=== PATIENT | female | born 1970 | race Caucasian/White ===

== ENCOUNTER 2018-05-20 11:55 | Outpatient (REF) | payer SELFPAY ==
[2018-05-21 11:29] LABS: HBs Antibody, Quant 178.1 mIU/mL; Hepatitis B Surface Ab Positive
[2018-05-21 13:32] LABS: Varicella IgG Antibody Positive
[2018-05-21 13:37] LABS: Measles IgG Antibody Positive; Mumps Antibody IgG Positive (Negative); Rubella IgG Ab (UVM) Positive
[2018-05-24 13:24] LABS: TB Interpretation Negative (NEGAT)
== END 2018-05-20 11:56 ==
LOC: LBO 11:55
PROVIDERS: Visit Provider Nurse Practitioner Family
DX: Z02.1 Encounter for pre-employment examination (principal); Z01.84 Encounter for antibody response examination

== ENCOUNTER 2019-01-31 00:21 | Outpatient (CLI) | payer MEDICAID, SELFPAY ==
--- NOTE | 2019-01-31 17:21 | DI.MAMMO_ITS ---
SYMPTOM/DIAGNOSIS: SCREENING, Z12.31 MAMMOGRAMS: Mammograms were interpreted according to the usual protocol including computer analysis with CAD system, tomosynthesis and C view imaging. This is a baseline examination. The breasts are composed of heterogeneously dense fibroglandular tissue, breast density, category C. No suspicious masses or suspicious microcalcifications are seen. IMPRESSION: Category 1, negative mammogram. Yearly screening mammography is recommended. [facility] ASSESSMENT OF FINDINGS: Negative. Category 1. Patient will receive a letter notifying them of these results. Bi-RADS category C. The breasts are heterogeneously dense, which may obscure small masses.
== END 2019-01-31 00:41 ==
PROVIDERS: PCP Family Medicine; Visit Provider Family Medicine
DX: Z12.31 Encounter for screening mammogram for malignant neoplasm of breast (principal)
CPT/HCPCS: 77063; 77067

== ENCOUNTER 2020-05-18 03:53 | Outpatient (REF) | payer SELFPAY ==
[2020-05-21 08:16] LABS: SARS-CoV-2 RNA Undetected (Undetected)
== END 2020-05-18 04:13 ==
LOC: LBO 03:53
PROVIDERS: PCP Family Medicine; Visit Provider Nurse Practitioner Family
DX: Z11.59 Encounter for screening for other viral diseases (principal)
CPT/HCPCS: U0003

== ENCOUNTER 2021-12-12 16:03 | Emergency (ER) | payer OTHER, SELFPAY ==
[2021-12-12 16:13] VITALS: BP 131/85; PULSE 53; RESP 16; TEMP 36.4; O2SAT 98
--- NOTE | 2021-12-12 16:15 | DI.RAD_ITS ---
Exam(s) XR PORTABLE CHEST AP EXAM: XR PORTABLE CHEST AP CLINICAL HISTORY: PUI, SOB, R/O Pneumonia TECHNIQUE: 2D digital imaging was performed of the chest. One image was obtained. An AP view was ob tained. COMPARISON: No exams were available for comparison FINDINGS: MEDIASTINUM: Normal. HEART: Normal. PULMONARY VASCULATURE: Normal. LUNGS: Clear. The lungs appear hyperexpanded which may represent underlying COPD. PLEURAL SPACE: No pleural effusion or pneumothorax. BONE:Within normal limits for the patient's age. OTHER FINDINGS:Normal. IMPRESSION: No acute pulmonary findings. DATA REPOSITORY: RADIATION DOSE DELIVERED:
--- NOTE | 2021-12-12 16:24 | ED.GENADUL_ITS ---
Discharge Plan Disposition Patient Disposition: HOME Condition: Stable Discharge Details Clinical Impression: URI (upper respiratory infection) Primary Care Provider: Mason Duque ED Provider: Anisha Colorado Home Meds and New Rx's Prescriptions: New doxycycline hyclate 100 mg tablet 100 mg PO BID 9 Days Qty: 18 0RF Discharge Instructions Instructions: Upper Respiratory Infection (ED) Additional Instructions: At this time the Covid, flu, RSV swabs are negative. Chest x-ray shows no evidence for pneumonia or infiltrate. However due to your symptoms I am going to treat you with antibiotics for possible sinusitis or a possible bacterial URI. You may also try Flonase or similar mmeg-djp-nlzhncx 1 spray to both nostrils once daily. Also take zinc such as Zicam or similar. Follow up with primary care provider in 3-5 days. Return to ED sooner if any worsening or concerns. Increase oral fluids. Please take Tylenol or Ibuprofen with food every 4-6 hours as needed for pain and swelling. Stand Alone Forms: Work Release Referrals: Mason Duque [Primary Care Provider] - 5 days Discharge Data Discharge Date/Time-TO BE ENTERED AT DEPARTURE: 12/12/21 18:36 Medical Decision Making 51-year-old female presents to the ER with chief complaint of respiratory symptoms for the last 5 days. She reports that she received a negative Covid test on Thursday. She reports decreased energy, cough with productive green sputum, hot and cold chills body ache. She has been taking zvfi-msq-yonuppk decongestants and Tylenol. She denies any chest pain no nausea vomiting diarrhea no abdominal pain or any other associated symptoms. Patient has no significant past medical history. She describes having pneumonia with similar symptoms approximately 1 year ago. Work-up ordered including CBC, CMP, blood cultures x2, chest x-ray and a flu- Vid. CBC within normal limits, CMP also largely within normal limits. Glucose slightly elevated at 168 Covid negative, flu negative and RSV negative. CXR: FINDINGS: MEDIASTINUM: Normal. HEART: Normal. PULMONARY VASCULATURE: Normal. LUNGS: Clear. The lungs appear hyperexpanded which may represent underlying COPD. PLEURAL SPACE: No pleural effusion or pneumothorax. BONE:Within normal limits for the patient's age. OTHER FINDINGS:Normal. IMPRESSION: No acute pulmonary findings. Patient symptoms are concerning for possible bacterial infection of either sinusitis or bacterial URI despite negative test. Will give patient d oxycycline. I did discuss using Flonase as needed and cobc-nva-zrhpgny zinc. I did discuss follow-up care and return instructions for any worsening. Patient was given a work note if needed to be off tomorrow. Patient remained hemodynamically stable alert oriented throughout stay. This text was generated using [employer] system, please disregard any oddities of phrase or misspellings. HPI General Mode of arrival: ambulatory . Date/Time Provider Initiated Documentation: 12/12/21 16:04 . Limitations to Documentation: no limitations . Information obtained by: patient, RN notes reviewed and old records reviewed . HPI Narrative: 51-year-old female presents to the ER with chief complaint of respiratory symptoms for the last 5 days. She reports that she received a negative Covid test on Thursday. She reports decreased energy, cough with productive green sputum, hot and cold chills body ache. She has been taking bcwk-fgu-zbgwjsv decongestants and Tylenol. She denies any chest pain no nausea vomiting diarrhea no abdominal pain or any other associated symptoms. Patient has no significant past medical history. She describes having pneumonia with similar symptoms approximately 1 year ago. Related Data Home Medications Medication Instructions Recorded Confirmed doxycycline hyclate 100 mg tablet 100 mg PO BID 9 Days #18 tab 12/12/21 Previous Rx's Medication Instructions Recorded doxycycline hyclate 100 mg tablet 100 mg PO BID 9 Days #18 tab 12/12/21 Allergies Allergy/AdvReac Type Severity Reaction Status Date / Time Penicillins Allergy Unknown Verified 12/12/21 16:18 General Stated Complaint: RespSymp STEVO: 4 Review of Systems All systems reviewed & are unremarkable except as noted in HPI and below Constitutional Constitutional: Reports body ache(s), Reports chills and Reports lethargy Respiratory Respiratory: Reports change in phlegm color, Reports cough and Reports excessive phlegm production PFSH All Active Problems (Updated 12/12/21 @ 17:59 by Anisha Colorado) URI (upper respiratory infection) (Acute) Encounter for screening for other viral diseases (Acute) Social History Smoking/Tobacco Use Status: Current every day Tobacco Type: cigarettes Smoking risk assessment performed?: Yes Alcohol Intake: never Substance use type: does not use Exam Narrative Exam Narrative: Constitutional: Alert and oriented x3. Appears stated age. Normal body habitus. Head: Normocephalic, no trauma. Eyes: Pupils PERRL, Red reflex noted, EOM's intact. Eyelids symmetrical without lesions, discharge, or swelling. ENT: Bilateral TM's WNL, External ear normal to inspection, no mastoid TTP, swelling, or erythema, Nasal turbinates WNL, no nasal discharge. Normal dentition, Posterior pharynx WNL, no exudate. Chest: RRR, Normal S1, S2, distal pulses intact. Resp: Lungs clear to auscultation bilaterally, no wheezes, rales, or rhonchi. Diminished in the bases. Abdomen: Soft, non-distended, Normoactive bowel sounds all 4 quads. Musculoskeletal: Normal gait, 5/5 strength to all four extremities. Skin: No suspicious rashes or lesions. Capillary refill less than 2 sec. Neurologic: Cranial nerves II-XII intact. Alert and oriented x 3. Motor: No deficits noted. Sensory: Intact bilaterally all 4 extremities. Reflexes: DTR's intact bilaterally.. Hematologic/Lymphatic: No ecchymosis, no lymphadenopathy. Course Vital Signs Vital signs: Vital Signs Temperature 36.4 C 12/12/21 16:13 Pulse 53 L 12/12/21 16:13 Respiratory Rate 16 12/12/21 16:13 Blood Pressure 131/85 12/12/21 16:13 Pulse Oximetry 98 12/12/21 16:13 Temperature 36.4 C 12/12/21 16:13 Temperature Source Skin 12/12/21 16:13 Pulse 53 L 12/12/21 16:13 Respiratory Rate 16 12/12/21 16:13 Respiratory Effort 12/12/21 16:19 Respiratory Depth Normal 12/12/21 16:19 Blood Pressure 131/85 12/12/21 16:13 Blood Pressure Position Sitting 12/12/21 16:13 Pulse Oximetry 98 12/12/21 16:13 Oxygen Delivery Method Room Air 12/12/21 16:13 Oxygen Flow Rate 0 12/12/21 16:13 Pain Level 4 12/12/21 16:13 Lab/Test Results Lab/Test Results: 12/12/21 16:22 Blood Blood Culture - Pending 12/12/21 16:22 Blood Blood Culture - Pending
[2021-12-12 17:11] LABS: Abs Immature Grans 0.02 10^3/uL (0.0-0.06); Absolute Basophil Count 0.03 10^3/uL (0.0-0.2); Absolute Eosinophil Count 0.19 10^3/uL (0.0-0.7); Absolute Lymphocyte Count 3.09 10^3/uL (1.2-3.4); Absolute Monocyte Count 0.37 10^3/uL (0.1-0.8); Absolute Neutrophil Count 2.43 10^3/uL (1.2-6.7); Basophils % 0.5; Eosinophils % 3.1; HCT 38.8 % (36.0-46.0); Immature Grans % 0.3; Lymphocytes % 50.4; MCH 30.5 pg (27.0-33.0); MCHC 33.5 % (32.0-36.0); MCV 91.1 fL (80-95); MPV 9.9 fL (8.0-11.0); Neutrophils % 39.7; Nucleated RBC 0 %; Platelet Count 199 10^3/uL (130-400); RBC 4.26 10^6/uL (3.93-5.22); RDW 11.9 % (11.7-14.6); RDW-SD 40.1 fL; WBC 6.13 10^3/uL (4.4-10.8)
[2021-12-12 17:18] LABS: ALT 22 U/L (14-59); AST 21 U/L (15-37); Albumin 3.3 g/dL (3.4-5.0); Alkaline Phosphatase 87 U/L (46-116); Anion Gap 6.1 mmol/L (3-11); BUN 14 mg/dL (7-18); Bilirubin, Total 0.3 mg/dL (0.2-1.0); CO2 28.9 mmol/L (21.0-32.0); CREATININE 0.8 mg/dL (0.55-1.02); Calcium 8.5 mg/dL (8.5-10.1); Chloride 105 mmol/L (98-107); Glucose 168 mg/dL (74-106); Potassium 3.5 mmol/L (3.5-5.1); Sodium 140 mmol/L (136-145); Total Protein 8.5 g/dL (6.4-8.2)
[2021-12-12 17:45] LABS: COVID-19 PCR Negative (Negative); Influenza A PCR Negative (Negative); Influenza B PCR Negative (Negative); RSV PCR Negative (Negative)
--- NOTE | 2021-12-12 17:46 | DI.VRAD_ITS ---
PROCEDURE INFORMATION: Exam: XR Chest Exam date and time: 12/12/2021 5:07 PM Age: 51 years old Clinical indication: Other: Pui, SOB, R/O pneumonia TECHNIQUE: Imaging protocol: XR of the chest. Views: 1 view. COMPARISON: No relevant prior studies available. FINDINGS: Lungs: Hyperinflation of the lung [place]. No consolidation. Pleural spaces: Unremarkable. No pleural effusion. No pneumothorax. Heart/Mediastinum: Unremarkable. No cardiomegaly. Bones/joints: Unremarkable. IMPRESSION: No acute findings. Dictated and Authenticated by: Vanessa Saunders MD. Ordering:KAREN Lancaster MD
[2021-12-12] MEDS: Doxycycline Hyclate 100 MG CAP PO (18:07)
[2021-12-12] MEDS: Doxycycline Hyclate 100 MG, 2 CAPS/BTL PO (18:07)
== END 2021-12-12 18:36 | disposition home or self-care (01) ==
LOC: ER 18:36
PROVIDERS: Emergency Provider Registered Nurse Emergency; PCP Family Medicine
DX: J06.9 Acute upper respiratory infection, unspecified (principal); R06.02 Shortness of breath; R05.1 Acute cough; F17.210 Nicotine dependence, cigarettes, uncomplicated
CPT/HCPCS: 36415; 80053; 87040; 87637; 99283; 71045; 85025

== ENCOUNTER 2022-10-29 02:17 | Outpatient (CLI) | payer OTHER, SELFPAY ==
--- NOTE | 2022-10-29 15:31 | DI.MAMMO_ITS ---
Exam(s) MAMMO SCREENING EXAM: MAMMO SCREENING CLINICAL HISTORY: SCREENING, Z12.39 TECHNIQUE: Bilateral full field digital CC and MLO mammographic images were obtained with 3D tomosyn thesis and utilizing computer aided detection (CAD). COMPARISON: Available for comparison. FINDINGS: Masses/Architectural Distortion: The nodule seen in the inferior left breast on the MLO view appears stable. No suspicious nodules or areas of architectural distortion are present. Microcalcifications: No suspicious pleomorphic-type are seen. Skin Thickening/Nipple Retraction: None. IMPRESSION: 1. No significant interval change with no specific features of malignancy noted. 2. Unless there is more urgent need, screening mammography is recommended, as per [employer] guidelines. BI-RADS Category 1 - Negative Breast Density - Category C - Heterogeneously dense Breast density category C or D implies that the patient has dense breast tissue. Dense breast tissue is very common and is not abnormal but dense breast tissue can make it harder to find cancer on a ma mmogram. Also, dense breast tissue may increase their breast cancer risk. This information about the result of the mammogram report was provided to the patient to raise their awareness. Use this report when you speak with the patient about their risks for breast cancer, which includes their family hist ory. At that time, you may recommend for more screening tests (Ultrasound or MRI) as they might be us eful based on their risk. A negative radiographic report should not delay biopsy if a dominant or clinically suspicious mass is present. Up to ten percent of cancers are not identified on mammography. A negative report may reinforce clinical impression. Adenosis and dense breasts may obscure an underlying neoplasm. False positive reports average 6 to 10%. Patient will receive a letter notifying them of these results.
== END 2022-10-29 02:37 ==
LOC: DI 02:18
PROVIDERS: PCP Family Medicine; Visit Provider Family Medicine
DX: Z12.31 Encounter for screening mammogram for malignant neoplasm of breast (principal); R92.8 Other abnormal and inconclusive findings on diagnostic imaging of breast
CPT/HCPCS: 77063; 77067

== ENCOUNTER 2024-04-06 15:25 | Emergency (ER) | payer OTHER, SELFPAY ==
--- NOTE | 2024-04-06 15:27 | ED.GENADUL_ITS ---
Discharge Plan Disposition Patient Disposition: Home Condition: Good Discharge Details Clinical Impression: UTI (urinary tract infection) Primary Care Provider: Mason Duque ED Provider: Jacqueline Trujillo Home Meds and New Rx's Prescriptions: New cephalexin 500 mg capsule 500 mg PO BID 7 Days Qty: 14 0RF phenazopyridine [Pyridium] 200 mg tablet 200 mg PO TID PRNQty: 6 0RF Discharge Instructions Instructions: Urinary Tract Infection, Adult ED Additional Instructions: Your history and exam are most consistent with a urinary tract infection. Please encourage hydration. Please urinate after sex. May use djel-idk-nyeghcq Azo to help with symptomatic relief, please take as directed on the packaging. Prescription for Keflex has been sent to your pharmacy for UTI. If you develop any back pain, fever/chills, worsening symptoms or other new/worsening symptoms please seek care urgently once again. Please follow-up with primary care Referrals: Mason Duque [Primary Care Provider] - [facility] General Date/Time Provider Initiated Documentation: 04/06/24 15:27 . Limitations to Documentation: no limitations . Information obtained by: patient and RN notes reviewed . History of Present Illness 53 year old F presents to the emergency department with the chief complaint of Dysuria, increased frequency and urgency, described as moderate and similar to prior episodes (Feels like previous urinary tract infections from years ago), Quality is described as burning, and is localized to the genitals. Patient reports no radiation. Patient started experiencing this hour(s) (Began earlier today) and it has been constant. No relieving factors improve symptom(s), No exacerbating factors reported . Patient notes malaise; denies chest pain, cough, fever/chills, loss of appetite, nausea/vomiting, rash and shortness of breath. Patient did receive the following treatments prior to arrival, none Related Data Home Medications ?Medication ?Instructions ?Recorded ?Confirmed cephalexin 500 mg capsule 500 mg PO BID 7 days #14 caps 04/06/24 phenazopyridine 200 mg tablet 200 mg PO TID PRN 6 doses #6 tabs 04/06/24 (Pyridium) Previous Rx's ?Medication ?Instructions ?Recorded cephalexin 500 mg capsule 500 mg PO BID 7 days #14 caps 04/06/24 phenazopyridine 200 mg tablet 200 mg PO TID PRN 6 doses #6 tabs 04/06/24 (Pyridium) Allergies Allergy/AdvReac Type Severity Reaction Status Date / Time Penicillins Allergy Unknown Verified 12/12/21 16:18 General STEVO: 4 Review of Systems Constitutional Constitutional: Reports as per HPI, Denies chills, Denies fever(s) and Denies poor appetite Cardiovascular Cardiovascular: Denies chest pain Respiratory Respiratory: Denies cough Gastrointestinal Gastrointestinal: Denies abdominal pain, Denies change in bowel habits, Denies nausea and Denies vomiting Genitourinary Genitourinary: Reports as per HPI Musculoskeletal Musculoskeletal: Reports as per HPI and Denies back pain Integumentary/Breasts Skin/Breast: Reports as per HPI and Denies rash Exam Const General: cooperative, healthy appearing, comfortable, no acute distress, well developed and well groomed Nutritional Appearance: average body habitus and well nourished Orientation: alert and awake Resp Effort & Inspection: normal respiratory effort and no respiratory distress Auscultation: clear to auscultation bilaterally, no rales, no rhonchi and no wheezes Cardio Rate: regular rate Rhythm: regular rhythm Heart Sounds: S1 normal and S2 normal GI Inspection: normal to inspection Palpation: soft, not firm, no guarding and nontender Back/Spine/Pelvis Back: no CVA tenderness Skin General skin exam: no rashes or lesions noted Trauma: no lacerations or abrasions Neuro General: patient alert and patient awake Cognition: normal cognition Speech: speech normal Gait: normal gait Medical Decision Making Patient is a pleasant 53-year-old female, otherwise healthy, presenting today with chief complaint of a UTI. She reports that she is been having increased frequency, urgency, burning. Is also noted some hematuria. Is having some suprapubic discomfort. Has not had any nausea or vomiting. No blood in her stool. No change in bowel habits. Reports a very this feels very similar to when she has had UTIs in the past although it has been several years since she had her last UTI. Patient denies any back or flank pain. Denies any vaginal discharge. Patient reports that she has been sexually active recently, believes that her UTIs associated with this. Denies any vaginal discharge, symptoms of STI. Patient is status post hysterectomy. On exam, patient appears nontoxic. She has no CVA tenderness. Abdomen is benign. Primarily concern for UTI at this time. Will obtain a urinalysis, sent for culture. Will start patient on antibiotics. Does not appear septic, afebrile. Patient's urine was difficult to interpret because it was slightly orange after patient had Pyridium. She did have large amount of RBCs, WBCs. He did see negative for bacteria but also reported that there was significant contamination. With her history and symptoms, I am primarily concerned for urinary tract infection despite the urinalysis and feel that treatment with antibiotics is appropriate. Will also have the patient on Azo which did seem to work well for her discomfort. Encourage hydration. Patient has not been hyd rating well recently and it has been very hot, likely contributing to her development of a UTI. Encouraged follow-up with primary care. All of her questions and concerns were addressed and she is in agreement this plan. Quality:SDOH Health Related Social Needs: No Data to Display PFSH All Active Problems (Updated 04/06/24 @ 15:39 by MODE Rosenberg) UTI (urinary tract infection) (Acute) Encounter for screening for other viral diseases (Acute) Social History Smoking/Tobacco Use Status: Current every day Tobacco Type: cigarettes Smoking risk assessment performed?: Yes Alcohol Intake: never Substance use type: does not use Housing: house Do you feel safe at home: Yes Do you feel safe in your relationship?: Yes
[2024-04-06 15:32] VITALS: BP 133/75; PULSE 59; RESP 16; TEMP 37.1; O2SAT 98
[2024-04-06 15:35] VITALS: BP 133/75; PULSE 59; RESP 16; TEMP 37.1; O2SAT 98
[2024-04-06] MEDS: Cephalexin 500 MG CAP, 4 CAPS/BTL PO (15:49)
[2024-04-06] MEDS: Ibuprofen 600 MG TAB PO (15:49)
[2024-04-06] MEDS: Phenazopyridine 100 MG TAB, 2 TABS/BTL 200 MG (15:49)
[2024-04-06 15:56] LABS: Clarity Clear (Clear); Specific Gravity 1.028 (1.005-1.025)
[2024-04-06 16:15] LABS: Bacteria Negative HPF (Negative); C & S Indicated? No/Sq. Contamination; Crystals Negative HPF (Negative); Epithelial Cells Few HPF (Negative); Mucus Negative (Negative); Other Cells Rare Transitional (Negative); RBC >50 HPF (0-2); WBC 20-50 HPF (0-5)
== END 2024-04-06 15:51 | disposition home or self-care (01) ==
LOC: ER 15:40
PROVIDERS: Emergency Provider Physician Assistant; PCP Family Medicine
DX: N39.0 Urinary tract infection, site not specified (principal); R10.30 Lower abdominal pain, unspecified; R30.0 Dysuria
CPT/HCPCS: 99283; 81003; 81015

== ENCOUNTER → 2024-05-04 22:02 | Emergency (ER) | payer OTHER, SELFPAY ==
[2024-05-04 22:05] VITALS: BP 122/76; PULSE 60; RESP 12; TEMP 36.2; O2SAT 97
[2024-05-04 22:19] LABS: Bilirubin Negative (Negative); Blood Trace-intact (Negative); Clarity Sl Cloudy (Clear); Glucose Negative (Negative); Ketones Negative (Negative); Leukocyte Esterase Trace (Negative); Nitrite Negative (Negative); Specific Gravity >= 1.030 (1.005-1.025); Urobilinogen 0.2 mg/dL (Up to 0.2); pH 5.5 (5-8)
[2024-05-04 22:34] LABS: Bacteria Few HPF (Negative); C & S Indicated? Yes; Casts Negative LPF (Negative); Crystals Negative HPF (Negative); Epithelial Cells Few HPF (Negative); Mucus Negative (Negative); Other Cells Few Transitional (Negative); RBC 0-2 HPF (0-2); WBC 20-50 HPF (0-5)
--- NOTE | 2024-05-04 23:10 | ED.GENADUL_ITS ---
Discharge Plan Disposition Patient Disposition: Home Condition: Stable Discharge Details Clinical Impression: UTI (urinary tract infection) Primary Care Provider: Mason Duque ED Provider: Valentina Ortiz Home Meds and New Rx's Prescriptions: New nitrofurantoin monohyd/m-cryst [Macrobid] 100 mg capsule 100 mg PO BID 7 Days Qty: 14 0RF Rx Instructions: must administer with a meal/food Continued dextroamphetamine-amphetamine 15 mg tablet Discharge Instructions Instructions: Urinary Tract Infection, Adult ED Additional Instructions: take antibiotics as prescribed yogurt daily while on antbiotics follow-up with urology with persistent symptoms HPI General Date/Time Provider Initiated Documentation: 05/04/24 22:08 . HPI Narrative: This 53-year-old female presents with dysuria and frequency which started 2 days prior to arrival. She was diagnosed with a urinary tract infection approximately a month ago and took a course of Keflex at that time with good resolution of symptoms. She has recently become sexually active with a partner and is monogamous without risk of sexually transmitted disease per patient. She denies any flank pain or fever or chills. Denies any additional concerns at this time. Denies rashes or lesions. Related Data Home Medications ?Medication ?Instructions ?Recorded ?Confirmed dextroamphetamine-amphetamine 15 05/04/24 mg tablet nitrofurantoin 100 mg PO BID 7 days #14 caps 05/04/24 monohydrate/macrocrystals 100 mg capsule (Macrobid) Previous Rx's ?Medication ?Instructions ?Recorded nitrofurantoin 100 mg PO BID 7 days #14 caps 05/04/24 monohydrate/macrocrystals 100 mg capsule (Macrobid) Allergies Allergy/AdvReac Type Severity Reaction Status Date / Time Penicillins Allergy Unknown Verified 12/12/21 16:18 General Stated Complaint: Urinary STEVO: 4 Exam Narrative Exam Narrative: Well-appearing alert oriented, no abdominal or flank tenderness Course Vital Signs Vital signs: Vital Signs Temperature 36.2 C L 05/04/24 22:05 Pulse 60 05/04/24 22:05 Respiratory Rate 12 05/04/24 22:05 Blood Pressure 122/76 05/04/24 22:05 Pulse Oximetry 97 05/04/24 22:05 Temperature 36.2 C L 05/04/24 22:05 Temperature Source Tympanic 05/04/24 22:05 Pulse 60 05/04/24 22:05 Respiratory Rate 12 05/04/24 22:05 Respiratory Effort Normal 05/04/24 22:05 Blood Pressure 122/76 05/04/24 22:05 Blood Pressure Position Sitting 05/04/24 22:05 Pulse Oximetry 97 05/04/24 22:05 Oxygen Delivery Method Room Air 05/04/24 22:05 Pain Level 3 05/04/24 22:05 Lab/Test Results Lab/Test Results: 05/04/24 22:00 Urine - Reflex from Ua Urine Culture - Pending Laboratory Tests Range/Units 05/04/24 22:00 Urine Color (Yellow) Yellow Urine Clarity (Clear) Sl Cloudy Urine pH (5-8) 5.5 Ur Specific [place] (1.005-1.025) >= 1.030 H Urine Protein (Neg-Trace) mg/dL Negative Urine Ketones (Negative) mg/dL Negative Urine Blood (Negative) Trace-intact H Urine Nitrite (Negative) Negative Urine Bilirubin (Negative) Negative Urine Urobilinogen (Up to 0.2) mg/dL 0.2 Ur Leukocyte Esterase (Negative) Trace H Urine RBC (0-2) HPF 0-2 Urine WBC (0-5) HPF 20-50 H Ur Epithelial Cells (Negative) HPF Few Urine Crystals (Negative) HPF Negative Urine Bacteria (Negative) HPF Few Urine Casts (Negative) LPF Negative Urine Mucus (Negative) Negative Urine Other (Negative) Few Transitional Ur Culture Indicated? Yes Urine Glucose (Negative) mg/dL Negative Medical Decision Making 53-year-old female presenting with dysuria. 20-50 white blood cells in urinalysis, will send for culture. Will treat empirically with Macrobid. Patient may benefit from outpatient evaluation with [facility] for alternative options/urology. Discharged home in stable condition with stable vitals. Recommendation for follow-up in 1 to 2 days with PCP Quality:SDOH Health Related Social Needs: No Data to Display PFSH All Active Problems (Updated 05/04/24 @ 22:37 by MODE Montes) UTI (urinary tract infection) (Acute) Encounter for screening for other viral diseases (Acute) Social History Smoking/Tobacco Use Status: Current every day Tobacco Type: cigarettes Smoking risk assessment performed?: Yes Alcohol Intake: never Substance use type: does not use Housing: house Do you feel safe at home: Yes Do you feel safe in your relationship?: Yes
--- NOTE | 2024-05-08 14:13 | NUR.NOTE ---
Access chart for demographic information for referral to [facility]. Referral faxed to [facility] for recurrent UTI's, in the next couple weeks. Nursing Note:
--- NOTE | 2024-05-17 17:57 | NUR.NOTE ---
Referral faxed to [facility] for UTI. follow up. P [phone] F [phone] Note:
== END | disposition home or self-care (01) ==
LOC: ER 22:37 → RED 23:25 → ER 23:25 → RED 23:25
PROVIDERS: Emergency Provider Physician Assistant; PCP Family Medicine
DX: N39.0 Urinary tract infection, site not specified (principal)
CPT/HCPCS: 87077; 81003; 81015; 87086; 87186

== ENCOUNTER 2025-05-26 08:38 | Outpatient (CLI) | payer OTHER, SELFPAY ==
[2025-05-25 17:22] LABS: TSH 0.69 uIU/mL (0.36-3.74)
== END 2025-05-26 08:39 | disposition home or self-care (01) ==
LOC: LBO 08:39
PROVIDERS: PCP Family Medicine; Visit Provider Family Medicine
DX: R53.83 Other fatigue (principal); Z13.89 Encounter for screening for other disorder
CPT/HCPCS: 36415; 84443